=== PATIENT | female | born 1980 | race Caucasian/White ===

== ENCOUNTER 2023-12-05 23:46 | Emergency (ER) | payer OTHER ==
[~2023-12-05] VITALS: Ht 157.5 cm; Wt 54.0 kg
[2023-12-06 00:30] VITALS: BP 157/115
== END 2023-12-06 00:30 | DRG 897 ==
LOC: ED 23:46
DX: F10.129 Alcohol abuse with intoxication, unspecified (principal); S40.022A Contusion of left upper arm, initial encounter; V48.6XXA Car passenger injured in noncollision transport accident in traffic accident, initial encounter; Z53.29 Procedure and treatment not carried out because of patient's decision for other reasons